=== PATIENT | male | born 1975 | race Caucasian/White ===

== ENCOUNTER 2018-10-07 09:23 | Emergency (ER) | payer SELFPAY ==
--- NOTE | 2018-10-07 10:01 | CR ---
[id number] RAD/RAD Shoulder Right 2V Min EXAM: 3 VIEWS RIGHT SHOULDER. INDICATION: POSSIBLE DISLOCATED SHOULDER. COMPARISON: None. DISCUSSION: No fracture, dislocation or other osseous abnormality. IMPRESSION: 1. Negative exam. Primo Thomas DO 10/07/18 0959 Thank you for allowing us to participate in the care of your patient.
--- NOTE | 2018-10-08 20:47 | EDM.PDOC ---
ED HPI GENERAL MEDICAL PROBLEM - General Chief Complaint: Upper Extremity Injury/Pain Stated Complaint: POSSIBLE DISLOCATION OF ARM Time Seen by Provider: 10/07/18 09:30 Source of Information: Reports: Patient History Limitations: Reports: No Limitations - History of Present Illness INITIAL COMMENTS - FREE TEXT/NARRATIVE: Pt. presents to ER with complaints of R shoulder pain. States that he was loading luggage into his vehicle and states that it "popped out and went right back in". Pt. has a history of rotator cuff injury and has had surgery for it in the past. Denies any numbness/tingling to extremity. Pt. is able to move shoulder with increased discomfort. Denies injury elsewhere. Denies any other trauma to the shoulder recently other than the loading of luggage (no falls, etc.) Onset Date: 10/07/18 Location: Reports: Upper Extremity, Right Quality: Reports: Ache, Throbbing Right Shoulder Pain Score (Numeric/FACES): 10 - Related Data Allergies Allergy/AdvReac Type Severity Reaction Status Date / Time meperidine [From Demerol] Allergy Other Verified 10/07/18 09:30 Home Meds: Home Meds . [No Known Home Meds] 10/07/18 [History] Past Medical History - Past Surgical History Musculoskeletal Surgical History: Reports: Shoulder Surgery, Other (See Below) Other Musculoskeletal Surgeries/Procedures:: rotator cuff surgery to R shoulder Social & Family History - Tobacco Use Smoking Status *Q: Current Every Day Smoker Years of Tobacco use: 2 Packs/Tins Daily: 1 - Alcohol Use Days Per Week of Alcohol Use: 2 Number of Drinks Per Day: 2 Total Drinks Per Week: 4 - Recreational Drug Use Recreational Drug Use: No Review of Systems - Review of Systems Review Of Systems: ROS reveals no pertinent complaints other than HPI. ED EXAM, GENERAL - Physical Exam Exam: See Below Exam Limited By: No Limitations General Appearance: Alert, WD/WN, No Apparent Distress Extremities: Normal Inspection, Normal Capillary Refill, Limited Range of Motion , Other (increased pain with movement of the shoulder. No crepitus or obvious deformity noted. Pt. unable to do straight arm raise.) Neurological: Alert, Oriented, CN II-XII Intact, Normal Cognition, Normal Reflexes Course - Vital Signs Last Recorded V/S: Last Vital Signs Temp 36.1 C 07/05/19 09:25 Pulse 103 H 10/07/18 09:25 Resp 18 10/07/18 09:25 BP 155/101 H 10/07/18 09:25 Pulse Ox 95 10/07/18 09:25 - Radiology Interpretation Free Text/Narrative:: Radiographs of shoulder do no reveal any obvious deformity. Departure - Departure Time of Disposition: 10:15 Disposition: Home, Self-Care 01 Condition: Good Clinical Impression: Sprain of shoulder, right - Discharge Information Instructions: [place] for Routine Care of Injuries Referrals: PCP,None [Primary Care Provider] - Forms: ED Department Discharge Additional Instructions: Use shoulder immobilizer as needed to help with discomfort. Toradol 10mg every 6 hours for pain. If continuing to have discomfort, follow-up in clinic, as there may be underlying soft tissue injury not present on the x-ray. - Assessment/Plan Plan: Use shoulder immobilizer as needed to help with discomfort. Toradol 10mg every 6 hours for pain. If continuing to have discomfort, follow-up in clinic, as there may be underlying soft tissue injury not present on the x-ray.
== END 2018-10-07 10:15 | disposition home or self-care (01) ==
LOC: VM.ED 09:23
DX: S43.401A Unspecified sprain of right shoulder joint, initial encounter (principal); F17.210 Nicotine dependence, cigarettes, uncomplicated; X50.1XXA Overexertion from prolonged static or awkward postures, initial encounter; Z88.8 Allergy status to other drugs, medicaments and biological substances
CPT/HCPCS: 73030-RT; 99283-25; 99283-GF